=== PATIENT | female | born 1965 | race Caucasian/White ===

== ENCOUNTER 2017-07-04 11:18 | Day surgery (SDC) | payer BC ==
[2017-07-03 14:35] VITALS: BMI 46.3
[2017-07-04] MEDS ORDERED: Propofol 200 MG/20 ML VIAL ONE (15:17)
[2017-07-04] MEDS ORDERED: PHENYLEPHRINE-NS 100 MCG/ML 10 ML SYRINGE ONE (15:17)
--- NOTE | 2017-07-04 18:49 | OP ---
DATE OF PROCEDURE: 07/04/2017 TITLE OF PROCEDURE: Colonoscopy. PREOPERATIVE DIAGNOSIS: Average risk colon cancer screening. POSTOPERATIVE DIAGNOSES: 1. Exam to cecum; good bowel preparation. 2. Small internal hemorrhoids. 3. Otherwise normal colonoscopy. PROCEDURE IN DETAIL: Written informed consent was obtained. Upon completion of the EGD, the patien t was repositioned for the colonoscopy. A digital rectal exam was performed that was unremarkable. A Pentax video colonoscope was inserted through the anal canal and advanced under direct visualizat ion to the cecum. Position in the cecum was verified by clear identification of the ileocecal valve and appendiceal orifice. The quality of the bowel preparation was good. Each colon segment was ex amined carefully as the colonoscope was slowly withdrawn from the cecum. Vascular pattern and haust ral folds appeared normal. No polyp, diverticulum, or vascular ectasia was identified. In the rect um, a retroflexed view demonstrated small internal hemorrhoids that were not actively bleeding. The colon was decompressed as the colonoscope was completely removed from the patient. There were no i mmediate complications. She was transferred to the day stay surgery area for post-procedure monitor ing. RECOMMENDATIONS: 1. Resume previous diet. 2. Resume previous medications. 3. Repeat colonoscopy for screening purposes in 10 years. 4. Follow up with GI as needed.
--- NOTE | 2017-07-04 19:06 | OP ---
DATE OF PROCEDURE: 07/04/2017 TITLE OF PROCEDURE: Esophagogastroduodenoscopy with biopsy. PREPROCEDURE DIAGNOSES: 1. Chronic reflux on PPI therapy. 2. History of lap band insertion in 2001. 3. Chronic NSAID use. POSTPROCEDURE DIAGNOSES: 1. Examination to second portion of duodenum. 2. Gastric lap band impression identified at 45 cm from the incisors. 3. Mild irregularity of the squamocolumnar junction at 32 cm, biopsied. 4. No evidence of esophageal or gastric ulcer. 5. Normal appearing stomach below the gastric lap band. 6. Normal duodenum. PROCEDURE IN DETAIL: Written informed consent was obtained. The patient was brought to the endosco py suite. Total intravenous anesthesia was provided by Dr. Schumacher and associates. The patient was p laced in the left lateral decubitus position. A bite block was inserted into the mouth. A Pentax v ideo diagnostic gastroscope was introduced into the oral cavity and the esophagus was easily intubat ed. The gastroscope was advanced under direct visualization to the second portion of the duodenum. Endoscopic findings revealed a mildly irregular squamocolumnar junction at 32 cm. Biopsies were ob tained just above this level for histology. There was no evidence of acute esophageal erosion or ul cer. The portion of the proximal stomach above the gastric lap band was identified extending from 3 2 cm to 45 cm from the incisors. The gastric lumen was narrowed at the point of the lap band, but c ould still easily be traversed and the remainder of the stomach was examined. The gastric mucosa ap peared intact without evidence of inflammation or ulceration. The retroflexed view was unremarkable . The duodenum from the bulb to the second portion was then examined and appeared normal. The stom ach was decompressed as the endoscope was completely removed from the patient. She was repositioned for the upcoming colonoscopy. There were no immediate complications. RECOMMENDATIONS: 1. Await biopsy results. 2. Ask the patient to follow up with me in the office in 3 months. 3. Continue Dexilant daily. 4. Recommendations for repeating EGD will depend on pathology results.
== END 2017-07-04 16:50 | disposition home or self-care (01) ==
LOC: SDC 11:18
PROVIDERS: ATTEND Internal Medicine Gastroenterology
PROC: 0DJD8ZZ Inspection of Lower Intestinal Tract, Via Natural or Artificial Opening Endoscopic (ICD-10-PCS; principal; 2017-07-04)
PROC: 0DB68ZX Excision of Stomach, Via Natural or Artificial Opening Endoscopic, Diagnostic (ICD-10-PCS; principal; 2017-07-04)
DX: Z12.11 Encounter for screening for malignant neoplasm of colon (principal); K21.9 Gastro-esophageal reflux disease without esophagitis; K64.8 Other hemorrhoids; E03.9 Hypothyroidism, unspecified; F32.9 Major depressive disorder, single episode, unspecified; Z79.899 Other long term (current) drug therapy; Z88.8 Allergy status to other drugs, medicaments and biological substances; Z98.84 Bariatric surgery status; Z90.49 Acquired absence of other specified parts of digestive tract; Z98.890 Other specified postprocedural states
CPT/HCPCS: 88305; 88312; 88313; J2704

== ENCOUNTER 2019-06-03 08:10 | Outpatient (CLI) | payer OTHER ==
--- NOTE | 2019-06-03 08:40 | MMO ---
Bilateral MAMMO Bilat Screen [facility]. CLINICAL HISTORY: Patient is 54 years old and is seen for screening. The patient has no family history of breast cancer. The patient has no personal history of cancer. VIEWS: The views performed were: bilateral craniocaudal with tomosynthesis and bilateral mediolateral oblique with tomosynthesis. FILMS COMPARED: The present examination has been compared to prior imaging studies performed at [facility] on 03/12/2013, 04/02/2014, 04/07/2015 and 06/19/2016. MAMMOGRAM FINDINGS: The breasts are almost entirely fat. There are no suspicious masses, suspicious calcifications, or new areas of architectural distortion. IMPRESSION: THERE IS NO MAMMOGRAPHIC EVIDENCE OF MALIGNANCY. A ROUTINE FOLLOW-UP MAMMOGRAM IN 1 YEAR IS RECOMMENDED. THE RESULTS OF THIS EXAM WERE SENT TO THE PATIENT. ACR BI-RADS Category 1 - Negative MAMMOGRAPHY NOTE: 1. A negative mammogram report should not delay a biopsy if a dominant of clinically suspicious mass is present. 2. Approximately 10% to 15% of breast cancers are not detected by mammography. 3. Adenosis and dense breasts may obscure an underlying neoplasm. Reported by: KYRA SIDHU MD Electonically Signed: [id number]
== END 2019-06-03 08:11 | disposition home or self-care (01) ==
LOC: BICMAMMO 08:10
PROVIDERS: ATTEND Nurse Practitioner Family
DX: Z12.31 Encounter for screening mammogram for malignant neoplasm of breast (principal)
CPT/HCPCS: 77063; 77067

== ENCOUNTER 2022-06-04 14:42 | Outpatient (CLI) | payer BC | END 2022-06-04 14:43 | disposition home or self-care (01) | LOC: SCSMRI 14:42 | PROVIDERS: ATTEND Nurse Practitioner Family | DX: M25.552 Pain in left hip (principal); M70.62 Trochanteric bursitis, left hip ==

== ENCOUNTER 2022-11-15 15:07 | Outpatient (CLI) | payer BC | END 2022-11-15 15:08 | disposition home or self-care (01) | LOC: TBSIIMAG 15:07 | PROVIDERS: ATTEND Nurse Practitioner Family | DX: M25.559 Pain in unspecified hip (principal); R53.1 Weakness; M51.34 Other intervertebral disc degeneration, thoracic region; M47.816 Spondylosis without myelopathy or radiculopathy, lumbar region; M51.36 Other intervertebral disc degeneration, lumbar region; M48.061 Spinal stenosis, lumbar region without neurogenic claudication; K60.2 Anal fissure, unspecified; M51.27 Other intervertebral disc displacement, lumbosacral region; M47.817 Spondylosis without myelopathy or radiculopathy, lumbosacral region; M48.07 Spinal stenosis, lumbosacral region | CPT/HCPCS: 72148 ==

== ENCOUNTER 2024-07-29 14:57 | Outpatient (CLI) | payer BC | END 2024-07-29 14:58 | disposition home or self-care (01) | LOC: BICMAMMO 14:57 | PROVIDERS: ATTEND Nurse Practitioner Family | DX: Z12.31 Encounter for screening mammogram for malignant neoplasm of breast (principal) | CPT/HCPCS: 77063; 77067 ==

== ENCOUNTER 2025-06-03 20:18 | Inpatient (IN) | payer BC ==
[2025-06-03 21:29] LABS: Bacteria/HPF None Seen HPF (None Seen); CAUTI Indications for Culture Alt mental st,lethar; Glucose, Urine (Dipstick) Normal (Negative); Leukocyte Negative Leu/uL (Negative); Protein, Urine (Dipstick) Negative (Neg-Trace); RBC/HPF 0-3 HPF (0-3); Specific Gravity, Urine 1.025 (1.002-1.036); WBC/HPF 0-3 HPF (0-3)
[2025-06-03 21:34] LABS: Urine Culture Reflex No No
[2025-06-03 21:35] LABS: Cocaine Metabolite Screen Negative (Negative); THC/Cannabinoid Screen Negative (Negative); Tricyclic Screen Negative (Negative)
[2025-06-03 22:21] LABS: #Basophils 0.05 10x3/uL (0.0-0.2); #Eosinophils 0.29 10x3/uL (0.0-0.7); #Monocytes 0.87 10x3/uL (0.11-0.59); #Neutrophils 3.94 10x3/uL (1.40-6.50); %Basophils 0.7 % (0.0-1.0); %Eosinophils 3.8 % (0.0-10.0); %Lymphocytes 32.6 % (21.0-51.0); %Monocytes 11.3 % (0.0-10.0); %Neutrophils 51.3 % (42.0-75.0); Hematocrit 36.8 % (36.0-47.0); Hemoglobin 12.0 g/dL (12.0-16.0); Mean Corpuscular Hemoglobin 29.1 pg (27.0-31.0); Mean Corpuscular Volume 89.1 fL (78.0-98.0); Platelet Count 219 10x3/uL (130-400); Red Blood Cell (RBC) Count 4.13 mill/uL (4.20-5.40); White Blood Cell (WBC) Count 7.67 10x3/uL (4.8-10.8)
[2025-06-03 22:35] LABS: Lipase 21 U/L (8-78)
[2025-06-03 22:38] LABS: Acetaminophen Less than 10 mcg/mL (Less than 10); Salicylate Less than 8.0 mg/dL (Less than 8.0)
[2025-06-03 22:39] LABS: ALT (SGPT) 13 U/L (Less than 34); AST (SGOT) 16 U/L (11-34); Albumin 3.5 g/dL (3.1-4.5); Alkaline Phosphatase 115 U/L (40-110); Anion Gap 11 mmol/L (10-20); BUN (Urea Nitrogen) 21 mg/dL (9.8-20.1); Bilirubin, Total 0.2 mg/dL (0.3-1.2); Calc. Creatinine Clearance 0 mL/min (70-130); Calcium 8.6 mg/dL (7.8-10.44); Carbon Dioxide 20 mmol/L (23-31); Chloride 114 mmol/L (98-107); Globulin 2.5 g/dL (2.4-3.5); Glucose 100 mg/dL (80-115); Potassium 3.9 mmol/L (3.5-5.1); Sodium 141 mmol/L (136-145)
[2025-06-04] MEDS ORDERED: Ondansetron PF 4 MG/2 ML Vial IVP PRN (00:01)
[2025-06-04] MEDS ORDERED: Acetaminophen 325 MG TAB PO PRN (00:01)
[2025-06-04 01:04] VITALS: BMI 44.1
[2025-06-04 04:04] LABS: #Basophils 0.05 10x3/uL (0.0-0.2); #Eosinophils 0.26 10x3/uL (0.0-0.7); #Monocytes 0.78 10x3/uL (0.11-0.59); #Neutrophils 3.19 10x3/uL (1.40-6.50); %Basophils 0.8 % (0.0-1.0); %Eosinophils 4.0 % (0.0-10.0); %Lymphocytes 34.2 % (21.0-51.0); %Monocytes 12.0 % (0.0-10.0); %Neutrophils 48.8 % (42.0-75.0); Hematocrit 35.3 % (36.0-47.0); Hemoglobin 11.5 g/dL (12.0-16.0); Mean Corpuscular Hemoglobin 29.0 pg (27.0-31.0); Mean Corpuscular Volume 88.9 fL (78.0-98.0); Platelet Count 182 10x3/uL (130-400); Red Blood Cell (RBC) Count 3.97 mill/uL (4.20-5.40); White Blood Cell (WBC) Count 6.52 10x3/uL (4.8-10.8)
[2025-06-04 04:19] LABS: Anion Gap 9 mmol/L (10-20); BUN (Urea Nitrogen) 17 mg/dL (9.8-20.1); Calc. Creatinine Clearance 133 mL/min (70-130); Calcium 8.6 mg/dL (7.8-10.44); Carbon Dioxide 23 mmol/L (23-31); Cardiac Risk 3.4 (Less than 4.5); Chloride 110 mmol/L (98-107); Cholesterol 154 mg/dl (< 200 Desired); Glucose 120 mg/dL (80-115); HDL Cholesterol 45 mg/dL (>60 Neg Risk); LDL Cholesterol, Calculated 90 mg/dL; Potassium 3.4 mmol/L (3.5-5.1); Sodium 139 mmol/L (136-145); Triglycerides 97 mg/dL (Less than 150)
[2025-06-04] MEDS: Enoxaparin 40 MG (0.4 mL) SYRINGE SC SCH (08:22)
[2025-06-04] MEDS ORDERED: Cyclobenzaprine 10 MG TAB PO PRN (18:07)
[2025-06-04] MEDS: Aspirin 81 mg Enteric Coated Tablet PO SCH (20:38)
[2025-06-05 04:23] VITALS: TEMP 97.8
[2025-06-05 04:28] LABS: Anion Gap 9 mmol/L (10-20); BUN (Urea Nitrogen) 11 mg/dL (9.8-20.1); Calc. Creatinine Clearance 131 mL/min (70-130); Calcium 8.3 mg/dL (7.8-10.44); Carbon Dioxide 26 mmol/L (23-31); Chloride 110 mmol/L (98-107); Glucose 92 mg/dL (80-115); Potassium 3.6 mmol/L (3.5-5.1); Sodium 141 mmol/L (136-145)
[2025-06-05] MEDS ORDERED: MAGNESIUM GLYCINATE 100 MG PO SCH (09:00)
[2025-06-05] MEDS: BuPROPion XL 150 MG ER.TAB PO SCH (09:53)
[2025-06-05] MEDS: Cholecalciferol 1,000 UNITS (25 MCG) TAB PO SCH (09:53)
[2025-06-05] MEDS: Metamucil PACK PO SCH (09:53)
[2025-06-05] MEDS: Pantoprazole 40 MG DR.TAB PO SCH (09:55)
[2025-06-05] MEDS: Aspirin 81 mg Enteric Coated Tablet PO SCH (09:57)
[2025-06-05] MEDS: Multivit, Therapeutic 1 TAB PO SCH (09:57)
[2025-06-05 10:04] VITALS: BP 120/69
== END 2025-06-05 11:59 | disposition home or self-care (01) | DRG 64 ==
LOC: ERS 20:18 → 2SE 23:00 → OBSVTOIN 06-04 16:38
PROVIDERS: ADMIT Internal Medicine; ATTEND Student in an Organized Health Care Education/Training Program
DX: I63.9 Cerebral infarction, unspecified (principal); G93.41 Metabolic encephalopathy; K21.9 Gastro-esophageal reflux disease without esophagitis; Z88.8 Allergy status to other drugs, medicaments and biological substances; Z91.048 Other nonmedicinal substance allergy status; F32.A Depression, unspecified; E03.9 Hypothyroidism, unspecified; Z98.890 Other specified postprocedural states; Z90.49 Acquired absence of other specified parts of digestive tract; R29.703 NIHSS score 3; Z79.899 Other long term (current) drug therapy; Z79.890 Hormone replacement therapy
CPT/HCPCS: 36415; 36416; 70450; 70544; 70553; 76376; 80048; 80053; 80061; 80306; 80307; 81001; 82140; 83036; 83690; 84443; 85025; 93005; 93306; 95700; 95711; 95957; 96372; 96374; G0378; J1650; J3411

== ENCOUNTER 2025-08-27 08:53 | Outpatient (CLI) | payer BC | END 2025-08-27 08:54 | disposition home or self-care (01) | LOC: BICMAMMO 08:53 | PROVIDERS: ATTEND Nurse Practitioner Family | DX: Z12.31 Encounter for screening mammogram for malignant neoplasm of breast (principal) | CPT/HCPCS: 77063; 77067 ==